=== PATIENT | male | born 1990 | race Caucasian/White ===

== ENCOUNTER 2019-06-19 18:17 | Emergency (ER) | payer BC ==
[~2019-06-19] VITALS: Ht 175 cm; Wt 70.4 kg
--- NOTE | 2019-06-19 18:32 | ED General ---
General Chief Complaint: Coughing up blood Stated Complaint: COUGHING UP BLOOD Nursing Triage Note: TO TRIAGE VIA AMB TO ROOM 05. COMPLAINS OF COUGHIN UP BLOOD TODAY. ALSO STATE HE HAS HAD A NOSE BLEED TODAY. Nursing Sepsis Screen: No Definite Risk Source of Information: Patient Exam Limitations: No Limitations History of Present Illness Date Seen by Provider: Jun 19, 2019 Time Seen by Provider: 18:31 Initial Comments To ER with cough productive of bloody sputum since earlier today. He did have a right-sided nosebleed earlier today as well. He gets these infrequently but he has had them before. He is otherwise healthy reports some minor shortness of breath. Is a nonsmoker. Timing/Duration: 12-24 Hours Severity: Mild Associated Systoms: Cough Allergies and Home Medications Allergies Coded Allergies: Penicillins (Verified Allergy, 11/21/11) Patient Home Medication List Home Medication List Reviewed: Yes Review of Systems Review of Systems Constitutional: see HPI EENTM: see HPI Respiratory: see HPI, hemoptysis Cardiovascular: no symptoms reported Genitourinary: no symptoms reported Musculoskeletal: no symptoms reported Skin: no symptoms reported Psychiatric/Neurological: No Symptoms Reported Hematologic/Lymphatic: No Symptoms Reported Past Eysrsui-Tdpvff-Huaqmn Hx Patient Social History Recent Foreign Travel: No Contact w/Someone Who Travel: No Recent Infectious Disease Expo: No Physical Exam Vital Signs Vital Signs - First Documented 06/19/19 18:20 Temp 36.8 Pulse 85 Resp 16 B/P (MAP) 138/85 (102) Pulse Ox 98 O2 Delivery Room Air Capillary Refill : Less Than 3 Seconds Height, Weight, BMI Height: '" Weight: lbs. oz. kg; 22.00 BMI Method: General Appearance: No Apparent Distress, WD/WN Eyes: Bilateral Eye Normal Inspection, Bilateral Eye PERRL, Bilateral Eye EOMI HEENT: PERRL/EOMI, TMs Normal, Other (a bit of dried blood to the right side of the anterior septum, no clot or active bleeding seen in the oropharynx or from the nose) Respiratory: Normal Breath Sounds, No Accessory Muscle Use, No Respiratory Distress, Other (he was able to expectorate some sputum was blood streaked) Cardiovascular: Regular Rate, Rhythm, Normal Peripheral Pulses Gastrointestinal: Non Tender, Soft Neurologic/Psychiatric: Alert, Oriented x3 Skin: Normal Color, Warm/Dry Progress/Results/Core Measures Suspected Sepsis Recent Fever Within 48 Hours: No Infection Criteria Present: None New/Unexplained Altered Menta: No Sepsis Screen: No Definite Risk SIRS Temperature: Pulse: 85 Respiratory Rate: 16 Laboratory Tests 06/19/19 18:32: White Blood Count 7.5 Blood Pressure 138 /85 Mean: 102 Laboratory Tests 06/19/19 18:32: Creatinine 1.02, INR Comment 1.2, Platelet Count 256, Total Bilirubin 0.4 Results/Orders Lab Results Laboratory Tests Test 06/19/19 18:32 Range/Units White Blood Count 7.5 4.3-11.0 10^3/uL Red Blood Count 4.61 4.35-5.85 10^6/uL Hemoglobin 14.8 13.3-17.7 G/DL Hematocrit 42 40-54 % Mean Corpuscular Volume 92 80-99 FL Mean Corpuscular Hemoglobin 32 25-34 PG Mean Corpuscular Hemoglobin Concent 35 32-36 G/DL Red Cell Distribution Width 12.5 10.0-14.5 % Platelet Count 256 130-400 10^3/uL Mean Platelet Volume 8.9 7.4-10.4 FL Neutrophils (%) (Auto) 69 42-75 % Lymphocytes (%) (Auto) 19 12-44 % Monocytes (%) (Auto) 12 0-12 % Eosinophils (%) (Auto) 0 0-10 % Basophils (%) (Auto) 0 0-10 % Neutrophils # (Auto) 5.2 1.8-7.8 X 10^3 Lymphocytes # (Auto) 1.4 1.0-4.0 X 10^3 Monocytes # (Auto) 0.9 0.0-1.0 X 10^3 Eosinophils # (Auto) 0.0 0.0-0.3 10^3/uL Basophils # (Auto) 0.0 0.0-0.1 10^3/uL Prothrombin Time 15.3 H 12.2-14.7 SEC INR Comment 1.2 0.8-1.4 Activated Partial Thromboplast Time 24 24-35 SEC Sodium Level 140 135-145 MMOL/L Potassium Level 3.5 L 3.6-5.0 MMOL/L Chloride Level 107 98-107 MMOL/L Carbon Dioxide Level 25 21-32 MMOL/L Anion Gap 8 5-14 MMOL/L Blood Urea Nitrogen 9 7-18 MG/DL Creatinine 1.02 0.60-1.30 MG/DL Estimat Glomerular Filtration Rate > 60 BUN/Creatinine Ratio 9 Glucose Level 109 H 70-105 MG/DL Calcium Level 9.5 8.5-10.1 MG/DL Corrected Calcium 8.5-10.1 MG/DL Total Bilirubin 0.4 0.1-1.0 MG/DL Aspartate Amino Transf (AST/SGOT) 23 5-34 U/L Alanine Aminotransferase (ALT/SGPT) 24 0-55 U/L Alkaline Phosphatase 32 L 40-136 U/L Total Protein 7.1 6.4-8.2 GM/DL Albumin 4.7 H 3.2-4.5 GM/DL My Orders Orders - REILLY CARLOS APRN Chest Pa/Lat (2 View) (06/19/19 18:30) Vital Signs/I&O 06/19/19 18:20 Temp 36.8 Pulse 85 Resp 16 B/P (MAP) 138/85 (102) Pulse Ox 98 O2 Delivery Room Air Capillary Refill : Less Than 3 Seconds Blood Pressure Mean: 102 Departure Impression Primary Impression: Hemoptysis Disposition: 01 HOME, SELF-CARE Condition: Stable Departure-Patient Inst. Decision time for Depature: 19:25 Referrals: DEON TA MD (PCP) Primary Care Physician Patient Instructions: Coughing up Blood Add. Discharge Instructions: 1. Follow-up with your doctor next week for any persistent symptoms 2. Return to ER for any concerns All discharge instructions reviewed with patient and/or family. Voiced understanding. REILLY CARLOS APRN Jun 19, 2019 18:32
[2019-06-19 18:44] LABS: BASOPHILS % (AUTO) 0 % (0-10); EOSINOPHILS % (AUTO) 0 % (0-10); HEMATOCRIT 42 % (40-54); HEMOGLOBIN 14.8 G/DL (13.3-17.7); LYMPHOCYTES # (AUTO) 1.4 X 10^3 (1.0-4.0); LYMPHOCYTES % (AUTO) 19 % (12-44); MEAN CORPUSCULAR HEMOGLOBIN 32 PG (25-34); MEAN CORPUSCULAR HGB CONC 35 G/DL (32-36); MEAN CORPUSCULAR VOLUME 92 FL (80-99); MEAN PLATELET VOLUME 8.9 FL (7.4-10.4); MONOCYTES # (AUTO) 0.9 X 10^3 (0.0-1.0); MONOCYTES % (AUTO) 12 % (0-12); NEUTROPHILS # (AUTO) 5.2 X 10^3 (1.8-7.8); NEUTROPHILS % (AUTO) 69 % (42-75); PLATELET COUNT 256 10^3/uL (130-400); RED CELL DISTRIBUTION WIDTH 12.5 % (10.0-14.5); WHITE BLOOD COUNT 7.5 10^3/uL (4.3-11.0)
--- NOTE | 2019-06-19 18:51 | NUR ---
REPORT GIVEN TO LONNIE NICKERSON.
[2019-06-19 18:55] LABS: INR 1.2 (0.8-1.4); PROTHROMBIN TIME PATIENT 15.3 SEC (12.2-14.7)
--- NOTE | 2019-06-19 18:59 | Diagnostic Imaging Report ---
Patient History: Hemoptysis today.. Technique: Two views of the chest Comparison: None FINDINGS: The lung volumes are normal. No focal consolidation is seen. No large pleural effusion or pneumothorax is seen. The cardiomediastinal silhouette is normal in size and contour. No acute osseous abnormality is seen. IMPRESSION: 1. No acute pleuroparenchymal process. Dictated by: Dictated on workstation # [id number]
[2019-06-19 19:01] LABS: ALANINE AMINOTRANSFERASE 24 U/L (0-55); ALBUMIN 4.7 GM/DL (3.2-4.5); ALKALINE PHOSPHATASE 32 U/L (40-136); BILIRUBIN,TOTAL 0.4 MG/DL (0.1-1.0); BUN/CREATININE RATIO 9; CALCIUM 9.5 MG/DL (8.5-10.1); CARBON DIOXIDE 25 MMOL/L (21-32); CHLORIDE 107 MMOL/L (98-107); CREATININE SERUM 1.02 MG/DL (0.60-1.30); GFR ESTIMATED > 60; GLUCOSE 109 MG/DL (70-105); POTASSIUM 3.5 MMOL/L (3.6-5.0); SODIUM 140 MMOL/L (135-145); TOTAL PROTEIN 7.1 GM/DL (6.4-8.2)
[2019-06-19 19:40] VITALS: BP 138/85
== END 2019-06-19 19:40 | disposition home or self-care (01) ==
LOC: EDUNIT# 18:17 → ER 18:18
DX: R04.2 Hemoptysis (principal); Z88.0 Allergy status to penicillin
CPT/HCPCS: 36415; 71046; 80053; 85025; 85610; 85730

== ENCOUNTER → 2019-07-19 | Outpatient (CLI) | payer BC ==
--- NOTE | 2019-07-19 08:40 | Diagnostic Imaging Report ---
PROCEDURE: US Gallbladder. TECHNIQUE: Multiple real-time grayscale images were obtained over the right upper quadrant in various projections. INDICATION: Epigastric pain. Liver is mildly enlarged at 18.4 cm. No discrete liver mass is identified. The portal vein is patent and shows normal direction of flow. Gallbladder is without stones or sludge. No wall thickening or biliary duct dilatation is seen. Pancreas unremarkable. Right kidney is without calculi or hydronephrosis. There is no ascites. IMPRESSION: 1. Mild hepatomegaly. 2. No evidence of cholelithiasis or acute cholecystitis. Dictated by: Dictated on workstation # [id number]
== END ==
LOC: RAD 07:47
PROVIDERS: ATTEND Surgery
DX: R10.816 Epigastric abdominal tenderness (principal); R16.0 Hepatomegaly, not elsewhere classified
CPT/HCPCS: 76705

== ENCOUNTER 2019-07-30 05:49 | Outpatient (CLI) | payer BC ==
[~2019-07-30] VITALS: Ht 175 cm; Wt 70.4 kg
[2019-07-30] MEDS ORDERED: CITA10TA7 PO (12:56)
== END 2019-07-30 14:39 | disposition home or self-care (01) ==
LOC: PREOP 05:49
PROVIDERS: ATTEND Surgery
DX: Z01.818 Encounter for other preprocedural examination (principal)

== ENCOUNTER → 2019-08-03 | Outpatient (CLI) | payer BC ==
[~2019-08-03] MED LIST: CATHETER FLUSH 10 ML SYR IV PRN; CITA10TA7 PO
--- NOTE | 2019-08-03 12:46 | Diagnostic Imaging Report ---
INDICATION: Epigastric pain. Patient was administered 5.3 mCi technetium 99m Choletec intravenously and imaging of the abdomen was performed. After 60 minutes patient ingested 1 can of Ensure and a gallbladder ejection fraction was calculated. Homogeneous uptake of activity by the liver is noted. There is prompt excretion of activity into the common duct and gallbladder. Normal passage of activity into the small bowel is seen. Gallbladder ejection fraction is lower limits of normal at 35%. IMPRESSION: Normal HIDA scan and gallbladder ejection fraction. Dictated by: Dictated on workstation # [id number]
== END ==
LOC: CARD 09:01
PROVIDERS: ATTEND Surgery
DX: R10.816 Epigastric abdominal tenderness (principal)
CPT/HCPCS: 78227

== ENCOUNTER 2019-08-06 08:23 | Day surgery (SDC) | payer BC ==
[~2019-08-06] VITALS: Ht 175.3 cm; Wt 70.4 kg
[~2019-08-06 08:23] MED LIST changes: -CATHETER FLUSH 10 ML SYR IV PRN
[2019-08-06] MEDS ORDERED: LACTATED RINGERS 1,000 ML IV ONE (09:39)
[2019-08-06] MEDS ORDERED: LACTATED RINGERS 1,000 ML IV STA (09:49)
[2019-08-06] MEDS ORDERED: HURRICAINE EXT TUBE (BENZOCAINE) XX PRN (10:00)
[2019-08-06 10:08] VITALS: BP 123/78
--- NOTE | 2019-08-06 11:16 | Progress Note-Pre Operative ---
Pre-Operative Progress Note H&P Reviewed The H&P was reviewed, patient examined and no changes noted. Time Seen by Provider: 10:54 Date H&P Reviewed: Aug 06, 2019 Time H&P Reviewed: 10:55 Pre-Operative Diagnosis: Hematemesis, Change in bowel habits GABRIELA BAUTISTA DO Aug 06, 2019 11:16 POS
[2019-08-06] MEDS ORDERED: PROPOFOL INJECTION 50 ML IV ONE (12:46)
[2019-08-06] MEDS ORDERED: HURRICAINE EXT TUBE (BENZOCAINE) ONE (13:10)
[2019-08-06 13:40] VITALS: BP 98/51
--- NOTE | 2019-08-06 13:41 | Progress Note-Post Operative ---
Post-Operative Progess Note Surgeon (s)/Bankruptcy Processor (s) Surgeon GABRIELA BAUTISTA DO Bankruptcy Processor: Valentin Molina MSIII Pre-Operative Diagnosis Hematemesis, Change in bowel habits Post-Operative Diagnosis Gastritis Int hemorrhoids Poor prep Procedure & Operative Findings Date of Procedure 08/06/19 Procedure Performed/Findings EGD with bx Colonoscopy Anesthesia Type IV sedation by WASHING MACHINE OPERATOR Estimated Blood Loss Estimated blood loss (mL): scant Specimens/Packing Specimens Removed antral bx body of stomach bx GE jxn bx GABRIELA BAUTISTA DO Aug 06, 2019 13:41 POS
--- NOTE | 2019-08-06 13:42 | Endoscopy Discharge Instruct ---
Endo Procedure/Findings Findings 1.: Polyp 2.: Internal Hemorrhoids Discharge Instructions - Activity: You might feel a little sleepy until tomorrow. This is due to the medicine you received to relax you. Until tomorrow, you should: NOT drive a car, operate machinery or power tools. NOT drink any alcoholic beverages. NOT make any important decisions or sign importortant papers. Do not return to work until tomorrow, unless otherwise instructed. Resume previous activities tomorrow. Diet: Start by taking liquids. If you tolerate liquids, advance to solid food. make an appointment for one week 1.: Colonoscopy in 1 year Notify Physician - If you experience excessive bleeding, unusual abdominal pain, fever, or chest pain, contact your doctor immediately. GABRIELA BAUTISTA DO Aug 06, 2019 13:42 POS
[2019-08-06 13:45] VITALS: BP 107/53
--- NOTE | 2019-08-06 13:45 | Endoscopy Discharge Instruct ---
Endo Procedure/Findings Findings 1.: Gastritis 2.: Other Findings (Early Esophagitis) 3.: Internal Hemorrhoids, Other Findings (poor prep) Discharge Instructions - Activity: You might feel a little sleepy until tomorrow. This is due to the medicine you received to relax you. Until tomorrow, you should: NOT drive a car, operate machinery or power tools. NOT drink any alcoholic beverages. NOT make any important decisions or sign importortant papers. Do not return to work until tomorrow, unless otherwise instructed. Resume previous activities tomorrow. Diet: Start by taking liquids. If you tolerate liquids, advance to solid food. make an appointment for one week. 1.: Colonscopy in 5 years, EGD in 3 years Notify Physician - If you experience excessive bleeding, unusual abdominal pain, fever, or chest pain, contact your doctor immediately. GABRIELA BAUTISTA DO Aug 06, 2019 13:45 POS
[2019-08-06 13:50] VITALS: BP 107/53
--- NOTE | 2019-08-06 14:23 | Anesthesia-General Post-Op ---
MAC Patient Condition Mental Status/LOC: Same as Preop Cardiovascular: Satisfactory Nausea/Vomiting: Absent Respiratory: Satisfactory Pain: Controlled Complications: Absent Post Op Complications Complications None Follow Up Care/Instructions Patient Instructions None needed. Anesthesiology Discharge Order Discharge Order Patient is doing well, no complaints, stable vital signs, no apparent adverse anesthesia problems. No complications reported per nursing. MELA ORNELAS CRNA Aug 06, 2019 14:23 POS
[2019-08-06 14:30] VITALS: BP 124/80
[2019-08-06 14:38] VITALS: BP 124/80
--- NOTE | 2019-08-06 15:20 | OPERATIVE REPORT ---
DATE OF SERVICE: 08/06/2019 PREOPERATIVE DIAGNOSES: 1. Hematemesis. 2. Change in bowel habits. POSTOPERATIVE DIAGNOSES: 1. Gastritis. 2. Poor prep 3. Internal hemorrhoids. PROCEDURE: 1. EGD with biopsy. 2. Colonoscopy. SURGEON: Hua Evans DO [employer] LEAD[employer]IP: Valentin Molina MS3. ANESTHESIA: IV sedation by LUMBER CARRIER OPERATOR. SPECIMEN: Biopsy from the antrum, biopsy of body of stomach, biopsy of the GE junction. BLOOD LOSS: Scant. FLUIDS: Per anesthesia. POSTOPERATIVE CONDITION: Stable. INDICATION FOR PROCEDURE: The patient is a 28-year-old male who has a history of hematemesis and needed a workup. He has also noted some change in bowel habits and needed an EGD and colonoscopy. 1. EGD did show some mild gastritis, questionable esophagitis. Biopsy done. We sent to pathology. In the colon he had a lot of retained fecal material, did not really show any inflammation or reason for any change in bowel habits and really did not even have any hemorrhoids. PROCEDURE NOTE: After informed consent was obtained, the patient was brought to the endoscopy suite, placed in bed in left lateral decubitus position. He was administered IV sedation by the LUMBER CARRIER OPERATOR who then monitored his vitals the entire time, heart rate, blood pressure and pulse ox and started with the EGD, placed the scope down the mouth through the esophagus into the stomach. On the way down took a picture of the GE junction, looked like there was some creeping up at the Z line. Pushed towards the antrum, there was some air inflammation and pushed into the duodenum. Duodenum looked fine. Pulled back into the antrum, did a biopsy. I retroflexed the scope and actually saw some inflammation right up at the cardia, did a biopsy right here and then took a picture of the scope, did not really see a hiatal hernia. Pulled the scope into the GE junction, did a biopsy of the GE junction then suctioned the air out of the stomach, pulled the scope up the esophagus and out the mouth. Switched camera, switched gloves, went down below, started the colonoscopy. Unfortunately, had a lot of retained fecal material, took pictures of this, able to get all the way to the cecum, took a picture of appendiceal orifice and able to get into the terminal ileum, took a picture. Try to slowly withdrawing the scope insufflating to look circumferentially at the esteves. Unfortunately, there was again a lot of retained fecal material, unable to suction it all out. I did not see any obvious inflammation, ulcers or any type of reason for change in bowel habits. Continued down through the colon all the way through the transverse, descending colon, sigmoid and rectum, retroflexed in the rectal vault, so I really did not see any internal hemorrhoids, took a picture and then pulled the scope out. The patient tolerated the procedure, recovered in endoscopy suite. Job ID: [id number] DocumentID: [id number] Dictated Date: 08/06/2019 14:16:14 Veterinary Virologist Date: 08/06/2019 15:18:56 Dictated By: HUA EVANS DO
== END 2019-08-06 14:40 | disposition home or self-care (01) ==
LOC: ENDO 08:23
PROVIDERS: ATTEND Surgery
DX: K29.50 Unspecified chronic gastritis without bleeding (principal); R19.4 Change in bowel habit; K21.0 Gastro-esophageal reflux disease with esophagitis; K92.1 Melena; K22.70 Barrett's esophagus without dysplasia; K64.8 Other hemorrhoids; F41.9 Anxiety disorder, unspecified; F32.9 Major depressive disorder, single episode, unspecified; Z88.0 Allergy status to penicillin
CPT/HCPCS: 88305

== ENCOUNTER 2019-08-28 12:00 | Outpatient (CLI) | payer BC ==
[~2019-08-28] VITALS: Ht 175 cm; Wt 70.4 kg
[2019-08-29] MEDS ORDERED: HYDR-3062 PO (08:54)
== END 2019-08-28 12:59 | disposition home or self-care (01) ==
LOC: PREOP 12:00
PROVIDERS: ATTEND Surgery
DX: Z01.818 Encounter for other preprocedural examination (principal)

== ENCOUNTER 2019-09-30 13:22 | Emergency (ER) | payer BC ==
[~2019-09-30] VITALS: Ht 175.2 cm; Wt 70.4 kg
[~2019-09-30 13:22] MED LIST changes: +HYDR-3062 PO
[2019-09-30 13:34] LABS: BASOPHILS % (AUTO) 0 % (0-10); EOSINOPHILS # (AUTO) 0.1 10^3/uL (0.0-0.3); EOSINOPHILS % (AUTO) 1 % (0-10); HEMATOCRIT 44 % (40-54); LYMPHOCYTES # (AUTO) 1.9 X 10^3 (1.0-4.0); LYMPHOCYTES % (AUTO) 15 % (12-44); MEAN CORPUSCULAR HEMOGLOBIN 32 PG (25-34); MEAN CORPUSCULAR HGB CONC 34 G/DL (32-36); MEAN CORPUSCULAR VOLUME 93 FL (80-99); MEAN PLATELET VOLUME 8.9 FL (7.4-10.4); MONOCYTES # (AUTO) 1.3 X 10^3 (0.0-1.0); MONOCYTES % (AUTO) 10 % (0-12); NEUTROPHILS # (AUTO) 9.8 X 10^3 (1.8-7.8); NEUTROPHILS % (AUTO) 74 % (42-75); PLATELET COUNT 292 10^3/uL (130-400); WHITE BLOOD COUNT 13.2 10^3/uL (4.3-11.0)
[2019-09-30 13:51] LABS: BILIRUBIN,URINE NEGATIVE (NEGATIVE); CLARITY,URINE CLEAR; COLOR,URINE YELLOW; GLUCOSE, URINE (UA) NEGATIVE (NEGATIVE); KETONES,URINE TRACE (NEGATIVE); LEUKOCYTE ESTERASE ,URINE NEGATIVE (NEGATIVE); NITRITE,URINE NEGATIVE (NEGATIVE); PH,URINE 5.5 (5-9); PROTEIN,URINE NEGATIVE (NEGATIVE)
[2019-09-30 13:51] LABS: ALANINE AMINOTRANSFERASE 38 U/L (0-55); ALBUMIN 4.9 GM/DL (3.2-4.5); ALKALINE PHOSPHATASE 31 U/L (40-136); BILIRUBIN,TOTAL 0.2 MG/DL (0.1-1.0); BUN/CREATININE RATIO 11; CARBON DIOXIDE 20 MMOL/L (21-32); CHLORIDE 103 MMOL/L (98-107); CREATININE SERUM 1.04 MG/DL (0.60-1.30); GFR ESTIMATED > 60; GLUCOSE 126 MG/DL (70-105); POTASSIUM 3.3 MMOL/L (3.6-5.0); SODIUM 139 MMOL/L (135-145); TOTAL PROTEIN 7.4 GM/DL (6.4-8.2)
--- NOTE | 2019-09-30 13:51 | ED General ---
General Chief Complaint: Neurological Problems Stated Complaint: L SIDE WEAKNESS Nursing Triage Note: Pt to ED with concern of stroke. Pt c/o L sided weakness and facial droop since yesterday. Pt also reports vomiting once today. Pt able to stand from wheelchair and transfer to cart without difficulty. Lisseth Muñoz performed NIH during assessment. Pt score 0. Nursing Sepsis Screen: No Definite Risk History of Present Illness Date Seen by Provider: Sep 30, 2019 Time Seen by Provider: 13:25 Initial Comments 28-year-old male presents for 24 hours of weakness on his left side, he initially says entire body on left side but upon further history, he states left face. He noticed weakness on the left side of his face and dropping of his mouth yesterday afternoon, he drank approximately 12 beers, does not drink alcohol frequently. He was able to sleep over-night and awoke with continued symptoms in his face. No vision changes and able to fully shut both eyes. No recent tick bits, did have mild URI a week or two ago and EGD/Colonsocopy in Jul 2019 and cholecystectomy approximately 3 weeks ago. He denies any nausea or vomiting. He did not obtain a flu shot in the fall of 2018. Timing/Duration: 12 Hours Severity: Mild Associated Systoms: No Chest Pain, No Cough, No Diaphoresis, No Fever/Chills, No Headaches, No Loss of Appetite, No Malaise, No Nausea/Vomiting, No Rash, No Seizure, No Shortness of Air, No Syncope; Weakness (left face); No Other Allergies and Home Medications Allergies Coded Allergies: amoxicillin (Verified Allergy, Unknown, 09/30/19) abdominal pain Penicillins (Verified Adverse Reaction, Mild, N/V, 08/29/19) Home Medications Acyclovir 400 Mg Tablet, 400 MG PO 5XD Prescribed by: LISSETH MUÑOZ on 09/30/19 1416 Citalopram Hydrobromide 10 Mg Tablet, 10 MG PO DAILY, (Reported) Hydrocodone/Acetaminophen 1 Each Tablet, 1 EACH PO Q6H PRN for PAIN-MODERATE Prescribed by: GABRIELA BAUTISTA on 08/29/19 0854 Prednisone 20 Mg Tab, 60 MG PO DAILY Prescribed by: LISSETH MUÑOZ on 09/30/19 1415 Patient Home Medication List Home Medication List Reviewed: Yes Review of Systems Review of Systems Constitutional: no symptoms reported, see HPI Psychiatric/Neurological: See HPI, Anxiety (started on Citalopram 1 month ago, has noticed improvement) All Other Systems Reviewed Negative Unless Noted: Yes Past Ciqixnz-Jodeyz-Vflczu Hx Past Med/Social Hx: Reviewed Nursing Past Med/Soc Hx Patient Social History Alcohol Use: Occasionally Uses Number of Drinks Today: AA Alcohol Beverage of Choice: Beer Recreational Drug Use: No 2nd Hand Smoke Exposure: No Recent Foreign Travel: No Contact w/Someone Who Travel: No Recent Infectious Disease Expo: No Recent Hopitalizations: Yes Immunizations Up To Date Date of Influenza Vaccine: Jun 25, 2019 Seasonal Allergies Seasonal Allergies: Yes (MILD) Past Medical History Surgeries: Yes (WISDOM TEETH) Gallbladder Respiratory: No Currently Using CPAP: No Currently Using BIPAP: No Cardiac: No Neurological: Yes Headaches /Migraines Sexually Transmitted Disease: No HIV/AIDS: No Genitourinary: No Gastrointestinal: Yes Chronic Constipation, Chronic Diarrhea Musculoskeletal: No Endocrine: No HEENT: No Loss of Vision: Denies Hearing Impairment: Denies Cancer: No Psychosocial: Yes Anxiety, Depression Integumentary: No Blood Disorders: No Adverse Reaction/Blood Tranf: No (N/A) Physical Exam Vital Signs Vital Signs - First Documented 09/30/19 13:22 Temp 36.6 Pulse 110 Resp 20 B/P (MAP) 129/77 (94) Pulse Ox 99 O2 Delivery Room Air Capillary Refill : Less Than 3 Seconds Height, Weight, BMI Height: '" Weight: lbs. oz. kg; 22.00 BMI Method: General Appearance: No Apparent Distress, WD/WN, Other (Mild drooping on left side of mouth, no other facial drooping) Eyes: Bilateral Eye Normal Inspection, Bilateral Eye PERRL, Bilateral Eye EOMI HEENT: PERRL/EOMI, TMs Normal, Normal ENT Inspection, Pharynx Normal, Other (Can fully shut eyes and remain closed against resistance. ) Neck: Full Range of Motion, Normal Inspection, Non Tender, Supple Respiratory: Chest Non Tender, Lungs Clear, Normal Breath Sounds Cardiovascular: Regular Rate, Rhythm, No Murmur, Normal Peripheral Pulses Gastrointestinal: Normal Bowel Sounds, Non Tender, Soft Neurologic/Psychiatric: Alert, Oriented x3, No Motor/Sensory Deficits, Normal Mood/Affect, french professor II-XII Norm as Tested (Groosly intactc, Other than passive drooping left side of mouth, full sensation to light touch and cold/warm, to face. Blink reflext intact. When he smiles, the left corner of mouth has trace drooping. ) Skin: Normal Color, Warm/Dry Comments Power Bilat UEs and LEs V/V. Full sensation to light touch. Progress/Results/Core Measures Suspected Sepsis Recent Fever Within 48 Hours: No Infection Criteria Present: None New/Unexplained Altered Menta: No Sepsis Screen: No Definite Risk SIRS Temperature: Pulse: 110 Respiratory Rate: 20 Laboratory Tests 09/30/19 13:25: White Blood Count 13.2H Blood Pressure 129 /77 Mean: 94 Laboratory Tests 09/30/19 13:25: Creatinine 1.04, Platelet Count 292, Total Bilirubin 0.2 Results/Orders Lab Results Laboratory Tests Test 09/30/19 13:25 09/30/19 13:45 Range/Units White Blood Count 13.2 H 4.3-11.0 10^3/uL Red Blood Count 4.69 4.35-5.85 10^6/uL Hemoglobin 15.0 13.3-17.7 G/DL Hematocrit 44 40-54 % Mean Corpuscular Volume 93 80-99 FL Mean Corpuscular Hemoglobin 32 25-34 PG Mean Corpuscular Hemoglobin Concent 34 32-36 G/DL Red Cell Distribution Width 13.0 10.0-14.5 % Platelet Count 292 130-400 10^3/uL Mean Platelet Volume 8.9 7.4-10.4 FL Neutrophils (%) (Auto) 74 42-75 % Lymphocytes (%) (Auto) 15 12-44 % Monocytes (%) (Auto) 10 0-12 % Eosinophils (%) (Auto) 1 0-10 % Basophils (%) (Auto) 0 0-10 % Neutrophils # (Auto) 9.8 H 1.8-7.8 X 10^3 Lymphocytes # (Auto) 1.9 1.0-4.0 X 10^3 Monocytes # (Auto) 1.3 H 0.0-1.0 X 10^3 Eosinophils # (Auto) 0.1 0.0-0.3 10^3/uL Basophils # (Auto) 0.0 0.0-0.1 10^3/uL Sodium Level 139 135-145 MMOL/L Potassium Level 3.3 L 3.6-5.0 MMOL/L Chloride Level 103 98-107 MMOL/L Carbon Dioxide Level 20 L 21-32 MMOL/L Anion Gap 16 H 5-14 MMOL/L Blood Urea Nitrogen 11 7-18 MG/DL Creatinine 1.04 0.60-1.30 MG/DL Estimat Glomerular Filtration Rate > 60 BUN/Creatinine Ratio 11 Glucose Level 126 H 70-105 MG/DL Calcium Level 10.0 8.5-10.1 MG/DL Corrected Calcium 8.5-10.1 MG/DL Total Bilirubin 0.2 0.1-1.0 MG/DL Aspartate Amino Transf (AST/SGOT) 30 5-34 U/L Alanine Aminotransferase (ALT/SGPT) 38 0-55 U/L Alkaline Phosphatase 31 L 40-136 U/L Total Protein 7.4 6.4-8.2 GM/DL Albumin 4.9 H 3.2-4.5 GM/DL TSH [place] Testing 0.49 0.35-4.94 UIU/ML Serum Alcohol 11 H <10 MG/DL Urine Color YELLOW Urine Clarity CLEAR Urine pH 5.5 5-9 Urine Specific [place] >=1.030 1.016-1.022 Urine Protein NEGATIVE NEGATIVE Urine Glucose (UA) NEGATIVE NEGATIVE Urine Ketones TRACE H NEGATIVE Urine Nitrite NEGATIVE NEGATIVE Urine Bilirubin NEGATIVE NEGATIVE Urine Urobilinogen 0.2 < = 1.0 MG/DL Urine Leukocyte Esterase NEGATIVE NEGATIVE Urine RBC (Auto) NEGATIVE NEGATIVE Urine RBC 0-2 /HPF Urine WBC RARE /HPF Urine Squamous Epithelial Cells RARE /HPF Urine Crystals NONE /LPF Urine Bacteria TRACE /HPF Urine Casts NONE /LPF Urine Mucus SMALL H /LPF Urine Culture Indicated NO Urine Opiates Screen NEGATIVE NEGATIVE Urine Oxycodone Screen NEGATIVE NEGATIVE Urine Methadone Screen NEGATIVE NEGATIVE Urine Propoxyphene Screen NEGATIVE NEGATIVE Urine Barbiturates Screen NEGATIVE NEGATIVE Ur Tricyclic Antidepressants Screen NEGATIVE NEGATIVE Urine Phencyclidine Screen NEGATIVE NEGATIVE Urine Amphetamines Screen NEGATIVE NEGATIVE Urine Methamphetamines Screen NEGATIVE NEGATIVE Urine Benzodiazepines Screen NEGATIVE NEGATIVE Urine Cocaine Screen NEGATIVE NEGATIVE Urine Cannabinoids Screen NEGATIVE NEGATIVE Micro Results Microbiology 09/30/19 Influenza Types A,B Antigen (RODRÍGUEZ) - Final, Complete My Orders Orders - LISSETH MUÑOZ Alcohol (09/30/19 13:29) Cbc With Automated Diff (09/30/19 13:29) Comprehensive Metabolic Panel (09/30/19 13:29) Drug Screen Stat (Urine) (09/30/19 13:29) Thyroid Analyzer (09/30/19 13:29) Ua Culture If Indicated (09/30/19 13:29) Influenza A And B Antigens (09/30/19 13:29) Prednisone Tablet (Deltasone Tablet) (09/30/19 14:00) Ed Iv/Invasive Line Start (09/30/19 13:52) Ns Iv 1000 Ml (Sodium Chloride 0.9%) (09/30/19 13:52) Medications Given in ED Current Medications Medications Dose Ordered Sig/Don Route Start Time Stop Time Status Last Admin Dose Admin Prednisone 60 mg ONCE ONCE PO 09/30/19 14:00 09/30/19 14:01 DC 09/30/19 14:03 60 MG Vital Signs/I&O 09/30/19 13:22 Temp 36.6 Pulse 110 Resp 20 B/P (MAP) 129/77 (94) Pulse Ox 99 O2 Delivery Room Air Capillary Refill : Less Than 3 Seconds Blood Pressure Mean: 94 Progress Note : Time: 13:25 Progress Note Patient seen and evaluated, mild anxiety related to his symptoms. Pulse is slightly tachycardic 90-110. Reassured patient after exam that it appears the Rodgers's Palsy and not a CVA. Educated patient on Rodgers's Palsy. Will obtain labs and give patient normal saline 1 L. 1400 prednisone 60 mg orally. Patient continues to be stable, no new symptoms. Pulse has maintained 70-80. 1430 no progression of patient's symptoms. Discharge instructions and return precautions reviewed with the patient. All questions answered. Departure Impression Primary Impression: Rodgers's palsy Disposition: 01 HOME, SELF-CARE Condition: Improved Departure-Patient Inst. Decision time for Depature: 14:30 Referrals: DEON TA MD (PCP/Family) Primary Care Physician Patient Instructions: Rodgers's Palsy (DC) Add. Discharge Instructions: Wear eye protection and skin tape provided for left eye to tape at night, if unable to fully close. Follow up later this week with your primary care provider, sooner if symptoms worsen. Start the prednisone Tuesday, your first dose was given in the ER. Take acyclovir, as directed, start today. Return to the emergency department for new, urgent health care needs. All discharge instructions reviewed with patient and/or family. Voiced understanding. Scripts Acyclovir (Acyclovir) 400 Mg Tablet 400 MG PO 5XD for 7 Days, #35 TAB 0 Refills Prov: LISSETH MUÑOZ 09/30/19 Prednisone (Prednisone) 20 Mg Tab 60 MG PO DAILY, #18 TAB 0 Refills Prov: LISSETH MUÑOZ 09/30/19 Copy Copies To 1: DEON TA MD, AMY ARNP Sep 30, 2019 13:51
[2019-09-30] MEDS ORDERED: NS IV 1000 ML 1,000 ML IV SCH (13:52)
[2019-09-30] MEDS ORDERED: predniSONE 20 MG TAB PO ONE (14:00)
[2019-09-30 14:05] LABS: BACTERIA,URINE TRACE /HPF; RBC,URINE 0-2 /HPF; SQUAMOUS EPITHELIAL CELL,UR RARE /HPF; WBC,URINE RARE /HPF
[2019-09-30 14:06] LABS: AMPHETAMINE SCREEN, URINE NEGATIVE (NEGATIVE); BARBITURATE SCREEN URINE NEGATIVE (NEGATIVE); BENZODIAZEPINES SCREEN URINE NEGATIVE (NEGATIVE); CANNABINOID SCREEN, URINE NEGATIVE (NEGATIVE); COCAINE SCREEN URINE NEGATIVE (NEGATIVE); METHADONE STAT NEGATIVE (NEGATIVE); METHAMPHETAMINE SCREEN URINE S NEGATIVE (NEGATIVE); OPIATE SCREEN URINE NEGATIVE (NEGATIVE); OXYCODONE STAT NEGATIVE (NEGATIVE); PROPOXYPHENE STAT NEGATIVE (NEGATIVE); TRICYCLIC ANTIDEPRESSANTS SCRE NEGATIVE (NEGATIVE)
[2019-09-30 14:11] LABS: TSH (THYROID ANALYZER) 0.49 UIU/ML (0.35-4.94)
[2019-09-30] MEDS ORDERED: PRD20T PO (14:15)
[2019-09-30] MEDS ORDERED: ACYC400T PO (14:16)
[2019-09-30 15:00] VITALS: BP 127/82
== END 2019-09-30 15:00 | disposition home or self-care (01) ==
LOC: EDUNIT# 13:22 → ER 13:23
DX: G51.0 Bell's palsy (principal); G43.909 Migraine, unspecified, not intractable, without status migrainosus; F41.9 Anxiety disorder, unspecified; F32.9 Major depressive disorder, single episode, unspecified; Z88.1 Allergy status to other antibiotic agents; Z88.0 Allergy status to penicillin
CPT/HCPCS: 36415; 80053; 80306; 80320; 81000; 84443; 85025; 87804